=== PATIENT | male | born 1990 | race Caucasian/White ===

== ENCOUNTER 2016-09-12 08:34 | Emergency (ER) | payer OTHER, MEDICAID ==
[~2016-09-12 08:34] MED LIST: ALBUTEROL17 GM INH; LORTAB 5/500 TA1 TA1 PO; PEN-VEE K PO; ZITHROMAX PO
== END 2016-09-12 09:55 | disposition home or self-care (01) ==
LOC: CED 08:34
DX: J02.0 Streptococcal pharyngitis (principal); F17.210 Nicotine dependence, cigarettes, uncomplicated
CPT/HCPCS: 87880; 96372; 99283; J0561